=== PATIENT | female | born 1985 | race Caucasian/White ===

== ENCOUNTER 2019-07-23 10:37 | Outpatient (CLI) | payer BC ==
[~2019-07-23] VITALS: Ht 162.6 cm; Wt 63.6 kg
--- NOTE | 2019-07-23 10:25 | NUR ---
1025-G4L3 34[age][address] ORELLANA AMBULATORY TO UNIT AND REPORTS SPOTTING THIS AM. ASSISTED INTO LR 3 AND PLACED ON EFM. REACTIVE FHR. DENIES LOF OR DECREASED FM. REPORTS CONTRACTIONS AT 3AM AND NOTHING SINCE AND THEN WOKE TO [facility] DISHC[facility]GE AT 0700. REPORTS BLEEDING STOPPED AND SHE HASNT NEEDED A PAD OR ANYTHING SINCE. DENIES INTERCOURSE IN THE LAST 48 HOURS OR ANY INCREASED ACTIVITY OR FALLS. UPDATED ON PLAN OF CARE. VSS. ASSESSMENT COMPLETE. 1040-DR. IBANEZ NOTIFIED, SEE PHYSICIAN NOTIFICATION. SVE BY DIMITRI MCCARTHY CLOSED/TH/HIGH. SMALL AMOUNT OF LIGHT PINK DISCHARGE ON GLOVE. TOCO NOT TRACING ANY CONTRACTIONS AND PATIENT CONTINUES TO DENY DISCOMFORTS. 1125-DISCHARGE INSTRCTIONS REVIEWED. DENIES FURTHER QUESTIONS. 1128-AMBULATORY OFF UNIT WITH SPOUSE.
[2019-07-23 10:53] VITALS: BP 100/56; PULSE 78; TEMP 98.9
[2019-07-23 11:00] VITALS: BP 100/56; PULSE 78; TEMP 98.9
[2019-07-23] MEDS ORDERED: SYNTHROID0.125 MG/T PO (11:00)
[2019-07-23] MEDS ORDERED: PRENATAL (11:01)
== END 2019-07-23 11:28 | disposition home or self-care (01) ==
LOC: LDRO 10:37 → LDR 10:40 → LDRO 11:28
DX: O26.853 Spotting complicating pregnancy, third trimester (principal); Z3A.34 34 weeks gestation of pregnancy
CPT/HCPCS: OP

== ENCOUNTER 2019-08-17 06:25 | Inpatient (IN) | payer BC ==
[2019-08-17] VITALS (45 sets, daily range): BP systolic 88–128; BP diastolic 49–78; PULSE 63–93; TEMP 98.2–98.6
[~2019-08-17] VITALS: Ht 162.6 cm; Wt 65.5 kg
[~2019-08-17 06:25] MED LIST: PRENATAL; SYNTHROID0.125 MG/T PO
--- NOTE | 2019-08-17 07:45 | NUR ---
Patient presents to unit for scheduled induction. Full assesment completed. Patient placed on monitors for contractions and heart tones. Iv started in left forearm. Labs obtained. Consents signed, questions encouraged and answered. Spouse at bedside. SVE completed, patient tolerated well. Denied any leaking of fluid or bleeding. Will continue to monitor pitocin started per protocol
[2019-08-17 08:08] LABS: HEMATOCRIT 37.2 % (37.0-47.0); HEMOGLOBIN 12.5 g/dl (12.5-16.0); MEAN CELL VOLUME 91 fl (80.0-100.0); MEAN CORPUSCULAR HEMOGLOBIN 31 pg (27.0-31.0); MEAN CORPUSCULAR HGB CONC 34 g/dl (33.0-37.0); MEAN PLATELET VOLUME 10.2 fl (7.4-10.4); PLATELET COUNT 220 K/mm3 (130-400); RED BLOOD COUNT 4.07 M/mm3 (4.10-5.30); REDCELL DISTRIBUTION WIDTH-CV 11.9 % (11.5-14.5)
--- NOTE | 2019-08-17 08:35 | NUR ---
at patient bedside, complete ultrasound for verification of position of infant, noted vertex. discussed plan of care with patient. encouraged questions and answered.
[2019-08-17 08:40] LABS: BAND 9 % (0-10); LYMPHOCYTE 17 % (20.0-51.0); NEUTROPHILS 68 % (42.0-75.2); PLATELET ESTIMATE NORMAL (NORMAL)
[2019-08-17 08:41] LABS: METAMYELOCYTE 1 % (0-0)
--- NOTE | 2019-08-17 10:30 | NUR ---
1020- at patient bedside, VILLAE completed 1025- AROm with clear fluid noted. Will continue to monitor.
--- NOTE | 2019-08-17 14:00 | NUR ---
Patient calls out, more uncomfortable with contractions, breathing through them, request epidural. SVE 1-2/75/-2, bloody show noted. Dr. Landis notified and okay for epidural received. IVF bolus started and [employer] notified.
--- NOTE | 2019-08-17 14:53 | NUR ---
1437 ALBERTO Crowell to room to place epidural. Patient sits upright on the edge of the bed. FHR difficult to monitor in this position and intermittently traces maternal HR as it coorelates with maternal HR on the spO2 tracing. 1453 Test dose administered by ALBERTO Crowell. See anesthesia record for details of epidural placement. 1456 Patient wedged to left side.
--- NOTE | 2019-08-17 16:00 | NUR ---
FHR with intermittent early, late, and variable decelerations. Moderate variability throughout tracing, FHR accelerations noted. Dr. Landis updated on FHR tracing and SVE of /-.
--- NOTE | 2019-08-17 17:15 | NUR ---
FHR decelerations continue. Dr. Landis on unit, reviews FHR tracing. To patient room, SVE /-2.
--- NOTE | 2019-08-17 17:45 | NUR ---
Patient calls out feeling increased pressure and pain with contractions. SVE /0. Dr. Landis notified and on his way to the hospital.
--- NOTE | 2019-08-17 18:00 | NUR ---
Patient feeling the urge to push, SVE complete/+1. Dr. Landis on unit and aware. Patient begins to push with contractions.
--- NOTE | 2019-08-17 18:20 | NUR ---
1812 Dr. Landis to room for delivery. Patient prepped for delivery, continues to push with contractions. 1819 Spontaneous vaginal delivery of viable male infant by Dr. Landis. Nuchal cord x2. Cord clamped and cut and to the care of the nursery RN. 1822 Spontaneous delivery of placenta by Dr. Landis. Pitocin infusing at 333ml/hr per orders and protocol. Fundus firm, lochia WNL. Perineum intact.
[2019-08-18 02:05] VITALS: BP 93/47; PULSE 74; TEMP 98.3
[2019-08-18 05:20] VITALS: BP 105/56; PULSE 62; TEMP 98.7
[2019-08-18 07:15] VITALS: BP 101/68; PULSE 72; TEMP 97.9
[2019-08-18 08:05] LABS: HEMOGLOBIN 11.1 g/dl (12.5-16.0)
[2019-08-18 08:06] LABS: HEMATOCRIT 33.2 % (37.0-47.0)
--- NOTE | 2019-08-18 08:47 | NUR ---
Initial visit; Patient thanked Beekeeper Farmer for stopping in and offering congratulations and God's blessings for the of her son. Beekeeper Farmer thanked patient for choosing [facility].
[2019-08-18 12:30] VITALS: BP 109/62; PULSE 81; TEMP 97.8
[2019-08-18 16:20] VITALS: BP 117/64; PULSE 57; TEMP 98
[2019-08-18 18:45] VITALS: BP 104/41; PULSE 67; TEMP 98.7
[2019-08-19] MEDS ORDERED: IBU600 MG PO (08:52)
[2019-08-19 09:00] VITALS: BP 93/53; PULSE 69; TEMP 97.7
== END 2019-08-19 14:45 | disposition home or self-care (01) | DRG 807 ==
LOC: LDR 06:25 → OB 20:54
PROVIDERS: ADMIT Obstetrics & Gynecology
PROC: 10907ZC Drainage of Amniotic Fluid, Therapeutic from Products of Conception, Via Natural or Artificial Opening (ICD-10-PCS; principal; 2019-08-17)
PROC: 10E0XZZ Delivery of Products of Conception, External Approach (ICD-10-PCS; 2019-08-17)
DX: O36.5930 Maternal care for other known or suspected poor fetal growth, third trimester, not applicable or unspecified (principal); Z37.0 Single live birth; Z3A.38 38 weeks gestation of pregnancy; O99.284 Endocrine, nutritional and metabolic diseases complicating childbirth; E03.9 Hypothyroidism, unspecified; O99.52 Diseases of the respiratory system complicating childbirth; J32.9 Chronic sinusitis, unspecified; O43.193 Other malformation of placenta, third trimester; O69.81X0 Labor and delivery complicated by cord around neck, without compression, not applicable or unspecified
CPT/HCPCS: J2590; J2795; J7120

== ENCOUNTER → 2020-03-01 | Outpatient (CLI) | payer OTHER ==
[~2020-03-01] MED LIST changes: +IBU600 MG PO
== END ==
LOC: COL.RAD 12:02
DX: M50.122 Cervical disc disorder at C5-C6 level with radiculopathy (principal); M48.02 Spinal stenosis, cervical region; Z98.1 Arthrodesis status

== ENCOUNTER → 2022-11-27 | Outpatient (CLI) | payer BC | LOC: MC.RAD 09-16 13:00 | DX: Z12.31 Encounter for screening mammogram for malignant neoplasm of breast (principal) ==

== ENCOUNTER → 2023-12-18 | Outpatient (CLI) | payer BC | LOC: MC.RAD 09:55 | DX: Z12.31 Encounter for screening mammogram for malignant neoplasm of breast (principal) ==